=== PATIENT | male | born 1980 | race Caucasian/White ===

== ENCOUNTER 2016-10-24 22:04 | Emergency (ER) | payer OTHER ==
--- NOTE | ~2016-10-24 | CR141 ---
[facility]. [facility] A Service of [facility] & [facility] RADIOLOGY TEXT RESULTS PATIENT: VANDANA FONG LOCATION: SED : 84 UNIT #: [id number] AGE: [address]: Mariana Koroma APRN SEX: M ORDER DR: [id number] [address] [address] [id number] E MR#: [id number] Acc #: [id number] NAME: VANDANA FONG : 1980 SEX: M STUDY DATE/TIME: 10/24/2016 21:53 UNIT: SED ROOM: STUDY DESCRIPTION: CR Hand Min 3 Views Lt Attending Physician: Mariana Koroma A.P.R.N. Ordering Physician: Mariana Koroma A.P.R.N. Primary Care Physician: Primary Care Physician No MEDICAL IMAGING REPORT This report is preliminary unless electronic signature is present. EXAM Left hand 3 views HISTORY SUPPLIED Pain in hand for 2 weeks. FINDINGS 3 views are submitted. The bony elements are intact. No fractures are seen. There is no bone destruction. Tiny metallic foreign body is identified over the hypothenar eminence. CONCLUSION Tiny metallic foreign body in the skin over the hypothenar eminence. Dictated by... Nitish Mcmillan M.D. THIS IS AN ELECTRONICALLY VERIFIED REPORT Nitish Mcmillan M.D. at 10/28/2016 7:21 AM CAITLIN/ramirez TD: 10/25/2016 02:22 JOB #: [id number] MEDICAL IMAGING REPORT Page 1 of 1
--- NOTE | ~2016-10-24 | CR281 ---
[facility]. [facility] A Service of [facility] & [facility] RADIOLOGY TEXT RESULTS PATIENT: VANDANA FONG LOCATION: SED : 84 UNIT #: [id number] AGE: [address]: Mariana Koroma APRN SEX: M ORDER DR: [id number] [address] [address] [id number] E MR#: [id number] Acc #: [id number] NAME: VANDANA FONG : 1980 SEX: M STUDY DATE/TIME: 10/24/2016 21:53 UNIT: SED ROOM: STUDY DESCRIPTION: CR Wrist Min 3 View Lt Attending Physician: Mariana Koroma A.P.R.N. Ordering Physician: Mariana Koroma A.P.R.N. Primary Care Physician: Primary Care Physician No MEDICAL IMAGING REPORT This report is preliminary unless electronic signature is present. EXAM Left wrist, 3 views HISTORY Left wrist pain and hand pain for 2 weeks. FINDINGS 3 views of the wrist are submitted. Bony elements are intact. Joint spaces and articular surface are preserved. No fractures are seen. There is a small metallic foreign body projected in the soft tissues along the medial aspect of the hypothenar eminence. CONCLUSION 1. Essentially negative left wrist. Tiny 1 mm metallic foreign body in the soft tissues along the medial aspect of the hypothenar eminence. Dictated by... Nitish Mcmillan M.D. THIS IS AN ELECTRONICALLY VERIFIED REPORT Nitish Mcmillan M.D. at 10/28/2016 7:21 AM CAITLIN/ramirez TD: 10/25/2016 02:20 JOB #: [id number] MEDICAL IMAGING REPORT Page 1 of 1
[~2016-10-24 22:04] MED LIST: FLEXERIL10 MG PO; LORTAB 5/500 TA1 TA1 PO; ORUDIS75 M1 PO
== END 2016-10-24 22:25 | disposition home or self-care (01) ==
LOC: SED 22:04
DX: M67.432 Ganglion, left wrist (principal); F17.200 Nicotine dependence, unspecified, uncomplicated
CPT/HCPCS: 29125; 73110; 73130; 99283